=== PATIENT | female | born 1975 | race Caucasian/White ===

== ENCOUNTER 2017-11-15 11:58 | Emergency (ER) | payer OTHER ==
[2017-11-15 12:15] VITALS: BP 131/75; PULSE 74; TEMP 98.6; BMI 34.2
[2017-11-15] MEDS ORDERED: LORATADINE 10 MG TABLET PO ONE (13:25)
[2017-11-15] MEDS ORDERED: LORATADINE 10 MG TABLET ONE (13:27)
--- NOTE | 2017-11-15 13:30 | PDOC ---
History of Present Illness - General Chief Complaint: Respiratory Stated Complaint: CONGESTION Time Seen by Provider: 11/15/17 12:54 History Source: Patient Exam Limitations: No Limitations (42y/o F with nasal congestion, cough and fever X 3 days) Past History - Travel Traveled outside of the country in the last 30 days: No Close contact w/someone who was outside of country & ill: No - Past Medical History Allergies/Adverse Reactions: Allergies Allergy/AdvReac Type Severity Reaction Status Date / Time No Known Allergies Allergy Verified 11/15/17 12:14 Home Medications: Ambulatory Orders Benzonatate [Tessalon Pearls -] 100 mg PO TID #21 capsule 11/15/17 Cetirizine HCl 10 mg PO DAILY 30 Days #30 tablet 11/15/17 Fluticasone Propionate [Flonase Allergy Relief] 9.9 ml NS BID 30 Days #1 spray.susp 11/15/17 COPD: No - Suicide/Smoking/Psychosocial Hx Smoking History: Never smoked Review of Systems - Review of Systems Is the patient limited Slovenian proficient: No Constitutional: Yes: Fever. No: Chills HEENTM: Yes: Nose Congestion. No: Eye Pain, Tearing, Ear Discharge, Throat Pain , Throat Swelling, Mouth Pain, Mouth Swelling Respiratory: Yes: Cough, Productive cough. No: Orthopnea, Shortness of Breath, SOB with Exertion, SOB at Rest, Wheezing Cardiac (ROS): No: Chest Pain, Palpitations, Syncope, Chest Tightness ABD/GI: No: Diarrhea *Physical Exam - Vital Signs Last Vital Signs Temp Pulse Resp BP Pulse Ox 98.6 F 74 18 131/75 99 11/15/17 12:12 11/15/17 12:12 11/15/17 12:12 11/15/17 12:12 11/15/17 12:12 - Physical Exam General Appearance: Yes: Nourished HEENT: positive: Pharynx Normal, Nasal Congestion, Rhinorrhea Neck: positive: Supple Respiratory/Chest: positive: Chest Tender, Lungs Clear, Normal Breath Sounds Cardiovascular: positive: Regular Rhythm, Regular Rate, S1, S2 Gastrointestinal/Abdominal: positive: Soft Extremity: positive: Normal Capillary Refill Integumentary: positive: Normal Color Neurologic: positive: casino controller II-XII NML intact, Fully Oriented, Alert Medical Decision Making - Medical Decision Making 11/15/17 13:32 42y/o F with cough, nasal congestion and fever X 3 days URI, meds sent to pharmacy increase hydration *DC/Admit/Observation/Transfer Diagnosis at time of Disposition: URI, acute - Discharge Dispostion Disposition: HOME Condition at time of disposition: Stable Decision to Admit order: No - Prescriptions Prescriptions: Benzonatate [Tessalon Pearls -] 100 mg PO TID #21 capsule Cetirizine HCl 10 mg PO DAILY 30 Days #30 tablet Fluticasone Propionate [Flonase Allergy Relief] 9.9 ml NS BID 30 Days #1 spray.susp - Referrals Referrals: ON STAFF,NOT [Primary Care Provider] - - Patient Instructions Printed Discharge Instructions: Common Cold Additional Instructions: increase hydration take medication as prescribed follow up with primary care doctor - Post Discharge Activity
== END 2017-11-15 13:32 | disposition home or self-care (01) ==
LOC: JERFT 11:58
DX: J06.9 Acute upper respiratory infection, unspecified (principal); B97.89 Other viral agents as the cause of diseases classified elsewhere
CPT/HCPCS: 99281-25